=== PATIENT | female | born 1995 | race Two or more races ===

== ENCOUNTER 2024-12-10 15:50 | Inpatient (IN) | payer MEDICAID, SELFPAY ==
[2024-12-10] VITALS (82 sets, daily range): BP systolic 112–160; BP diastolic 72–101; PULSE 68–101; RESP 18–98; TEMP 36.7–36.9; O2SAT 85–100; BMI 35.5
--- NOTE | 2024-12-10 16:05 | XR_ITS ---
Examination: Biophysical profile, ultrasound Date and time of exam: December 10, 2024, 1617 hours INDICATIONS: Labor evaluation, nonreactive NST in the doctor's office today Technique: Multiple transabdominal sonographic images of the pelvis abdomen obtained. Attention is directed to the breathing movement, gross body movement, amniotic fluid volume and tone. Findings: Amniotic fluid index 5.6 cm Total biophysical profile is 8 of 8. breathing movement is 2. Gross body movement is 2. tone is 2. Qualitative amniotic fluid volume is 2 Impression: Biophysical profile is 8 of 8.
--- NOTE | 2024-12-10 16:05 | XR_ITS ---
Examination: age images TECHNIQUE: Limited transabdominal sonographic images pelvis Date and time: December 10, 2024, 1628 hours INDICATIONS: Liver evaluation, nonreactive NST in doctor's office today, and no presentation weight FINDINGS: Viable intrauterine gestation cephalic presentation spine maternal right. Estimated gestational age 38 weeks 2 days. Estimated weight 3422.4 g. IMPRESSION: Viable intrauterine gestation cephalic presentation
[2024-12-10 17:51] LABS: Basophils # (Auto) 0.0 Thou/mm3 (0.0-0.2); Basophils % (Auto) 0 % (0-2.5); Eosinophils # (Auto) 0.1 Thou/mm3 (0.0-0.5); Eosinophils % (Auto) 1 % (0-10); Hematocrit 32.7 % (36.0-46.0); Hemoglobin 11.2 g/dL (12.0-16.0); Immature Granulocytes Auto 0.09 Thou/mm3 (0.00-0.00); Lymphocytes # (Auto) 2.0 Thou/mm3 (1.0-4.8); Lymphocytes % (Auto) 17 % (10-50); Mean Corpuscular HGB Conc 34.3 g/dl (31.0-37.0); Mean Corpuscular Hemoglobin 26.0 pg (25.0-35.0); Mean Corpuscular Volume 76 fL (80-100); Monocytes # (Auto) 0.9 Thou/mm3 (0.0-0.8); Monocytes % (Auto) 7 % (0-12); Neutrophils # (Auto) 8.5 Thou/mm3 (1.8-7.7); Neutrophils % (Auto) 74 % (37-80); Nucleated Red Blood Cell # 0.00 Thou/mm3 (0.00-0.00); Nucleated Red Blood Cell % 0 /100 WBC (0); Platelet Count 184 Thou/mm3 (140-440); RDW Standard Deviation 38.0 fL (36.4-46.3); Red Blood Count 4.30 Miln/mm3 (4.00-5.20); White Blood Count 11.5 Thou/mm3 (3.6-11.0)
[2024-12-10 18:13] LABS: Collection Type, Urine Clean Catch
[2024-12-10 18:23] LABS: Amphetamine/Metham Scrn,Ur OB Negative (Negative); Benzoylecgonine Screen, Ur OB Negative (Negative); Opiate Screen,Urine OB Negative (Negative); THC Screen,Urine OB Negative (Negative)
[2024-12-10 18:24] LABS: Fibrinogen 578 mg/dL (175-375); INR 0.9 (0.9-1.3); Partial Thromboplastin Time 24.8 Seconds (22.0-36.0); Prothrombin Time 9.8 Seconds (9.0-12.2)
[2024-12-10 18:24] LABS: Bacteria,Urine Rare; Bilirubin,Urine Negative (Negative); Blood,Urine Negative (Negative); Clarity,Urine Clear (Clear/Hazy); Color,Urine Lt-Yellow (Lt Yel-Yel); Glucose, Urine Negative (Negative); Ketones,Urine Negative (Negative); Leukocyte Esterase,Urine Negative (Negative); Nitrite,Urine Negative (Negative); PH,Urine 6.5 (5.0-7.0); Protein,Urine Trace (Neg - Trace); RBC,Urine 2 /hpf (0-3); Specific Gravity,Urine 1.027 (1.001-1.035); Squamous Epithelial Cell,Urine 3 /hpf (0-5); Urobilinogen,Urine Negative mg/dL (0.0-1.0); WBC,Urine 1 /hpf (0-5)
[2024-12-10 18:25] LABS: Alanine Aminotransferase < 7 U/L (10-49); Albumin, Serum 3.8 gm/dL (3.5-5.0); Albumin/Globulin Ratio 1.3 (1.2-2.2); Alkaline Phosphatase 150 U/L (46-116); Anion Gap 11 (7-16); Aspartate Amino Transferase 24 U/L (0-34); BUN/Creatinine Ratio 17 Ratio (12-20); Bilirubin,Total 0.3 mg/dL (0.3-1.2); Blood Urea Nitrogen 10 mg/dL (9-23); Calcium 8.8 mg/dL (8.3-10.6); Calcium (Corrected) 9.0 mg/dL (8.5-10.1); Carbon Dioxide 19.3 mMol/L (20.0-31.0); Chloride 108 mMol/L (98-107); Creatinine (Component) 0.6 mg/dL (0.6-1.3); Estimated Creatinine Clearance 137.1 mL/min (>60); Globulin 2.9 gm/dL (2.3-3.5); Glucose 71 mg/dL (74-106); LDH (Lactate Dehydrogenase) 338 U/L (120-246); Osmolality,Calculated 272 (275-295); Potassium 4.4 mMol/L (3.4-5.1); Sodium 138 mMol/L (136-145); Total Protein 6.7 gm/dL (5.7-8.2); Uric Acid 5.6 mg/dL (3.1-7.8); eGFR > 60 See Note
[2024-12-10 18:31] LABS: Syphilis Nonreactive (Nonreactive)
--- NOTE | 2024-12-10 20:24 | PD.LDHP ---
Documentation for date of: 12/10/24 OB Labor/Induct. HPI History of Present Illness Chief complaint: Induction of labor for elevated blood pressures : 5 Term pregnancies: 3 pregnancies: 0 Living children: 3 History of Abortions: Spontaneous and Elective: 1 History of sections: No History of : No Date of last menstrual period: 06/26/24 KARRI: 12/15/24 Gestational Age (weeks): 39 Gestational Age (days): 2 Gestational age based on last menstrual period: 23 Indication for induction: nonreassuring APT and other (Elevated blood pressures in the office) History of present illness: Patient is a 29-year-old -0-1-4 all care uncomplicated with Dr. Luis Antonio Dykes. History of gestational diabetes not insulin requiring who presented to the office with decreased movement had a nonreactive NST blood pressures in the office were 140s to 150s over 80s to 90s with 2+ protein. She was sent over for an induction of labor secondary to -induced hypertension. Of note her last baby was almost 10 pounds. She did not have a shoulder dystocia but it looks like she did have some extra bleeding and was given medications. On admission she denies headaches right upper quadrant pain she is a little anxious. She is requesting dinner. All preeclamptic labs are normal. Cervix on presentation is 270-2 vertex. Adequate pelvic output. The plan will be for Cytotec augmentation orally. History of Present Adequate Care: Yes Ultrasounds: normal mid trimester US Obstetrical complications: gestational diabetes (Not on insulin) and other (History of large for gestational age infant with last delivery of a baby that weighed close to 10 pounds. No shoulder dystocia.) Medical complications: none Labs Maternal Blood Type: O Pos Labs: Negative: RPR, Hepatitis B, Rubella Titre, HIV, Chlamydia, Gonorrhea and Group Beta Strep and Unknown: Herpes Type 1, Herpes Type 2 and Covid-19 Past Medical History Surgical History SURGICAL: Negative Section Meds Home Medications and Allergies Home Medications ?Medication ?Instructions ?Recorded ?Confirmed ?Type alcohol swabs (Alcohol Prep Pads) 1 pad topical .COMPLEX 12/10/24 12/10/24 History blood sugar diagnostic (True 12/10/24 12/10/24 History Metrix Glucose Test Strip) lancets 12/10/24 12/10/24 History lancets 33 gauge (TRUEplus Lancets) 12/10/24 12/10/24 History vit no.95-ferrous 1 tab PO DAILY 12/10/24 12/10/24 History fumarate 28 mg-folic acid 800 mcg tablet () Allergies Allergy/AdvReac Type Severity Reaction Status Date / Time cinnamon Allergy Mild Hives Verified 12/10/24 20:37 COCONUT Allergy Severe SOB, Uncoded 12/10/24 20:37 SWELLING, RASH, SWELLING OF THROAT OB Exam Physical Exam Vital signs: Temp Pulse Resp BP Pulse Ox 98.1 F 84 20 133/85 H 97 12/10/24 19:30 12/10/24 20:20 12/10/24 19:30 12/10/24 20:20 12/10/24 20:01 Detailed Labor and Delivery Exam Dilation (cm): 2 Effacement (%): 70 Cervix position: posterior station: -2 Consistency: soft Presentation: Vertex Membranes: intact Baseline heart rate: 150 monitor decelerations: None middle or intermediate school principal variability: Moderate (11-25) Contraction frequency (min): irregular Tachysystole: No Contraction intensity: Mild OB Results Labs 12/10/24 16:43 12/10/24 16:43 Labs: Short CBC 12/10/24 Range/Units 16:43 WBC 11.5 H (3.6-11.0) Thou/mm3 Hgb 11.2 L (12.0-16.0) g/dL Hct 32.7 L (36.0-46.0) % Plt Count 184 (140-440) Thou/mm3 BMP 12/10/24 16:43 Sodium 138 Potassium 4.4 Chloride 108 H Carbon Dioxide 19.3 L BUN 10 Creatinine 0.6 Glucose 71 L Calcium 8.8 Liver Function 12/10/24 Range/Units 16:43 Total Bilirubin 0.3 (0.3-1.2) mg/dL AST 24 (0-34) U/L ALT < 7 L (10-49) U/L Alkaline Phosphatase 150 H (46-116) U/L Albumin 3.8 (3.5-5.0) gm/dL Urine 12/10/24 Range/Units 17:45 Urine Color Lt-Yellow (Lt Yel-Yel) Urine Clarity Clear (Clear/Hazy) Urine pH 6.5 (5.0-7.0) Ur Specific [place] 1.027 (1.001-1.035) Urine Protein Trace (Neg - Trace) Urine Glucose (UA) Negative (Negative) OB Assessment & Plan Assessment and Plan (1) Encounter for induction of labor: Status: Acute Assessment and plan: Patient has elevated blood pressures in the office. Admit for induction of labor secondary to -induced hypertension (2) Preeclampsia: Status: Acute Assessment and plan: Labs are normal treat blood pressure as needed (3) Supervision of high risk in third trimester: Status: Acute Assessment and plan: For induction of labor Additional Plan Induction method: per misoprostol protocol Plan: induction and anticipate NVD (2) Preeclampsia Qualifiers: Trimester: third trimester Qualified Code(s): O14.93 - Unspecified pre-eclampsia, third trimester
[2024-12-11] VITALS (122 sets, daily range): BP systolic 110–200; BP diastolic 67–122; PULSE 60–123; RESP 16–20; TEMP 36.4–37.1; O2SAT 82–100
[2024-12-11] MEDS: RINGERS LACTATED 1000 ML 1,000 ML 100 ML IV ×2 (01:45→07:43)
[2024-12-11] MEDS: fentaNYL CIT INJ 50 mCg/ML AMP 2ML 100 MCG IVP ×2 (05:45→07:56)
--- NOTE | 2024-12-11 08:49 | PD.LDPN ---
Documentation for date of: 12/11/24 OB Labor Progress Note Pelvic Exam Dilation (cm): 3.5 Effacement (%): 80 station: -2 Amniotic membrane status: Ruptured Contractions Monitor mode: Internal Contraction frequency: 2.5-4.5 Contraction pattern: Coupling Contraction intensity: Moderate Status status: Category l Assessment and Plan Comments: Induction of labor
[2024-12-11] MEDS: OXYTOCIN in NS 20 units 20 UNIT/1,000 ML BAG 125 UNIT IV (09:35)
[2024-12-11] MEDS: IBUPROFEN TAB 400 MG TABLET 800 MG PO ×2 (09:46→18:31)
--- NOTE | 2024-12-11 09:48 | PD.LDDS ---
DS: Providers Provider Date of admission: 12/10/24 15:50 Primary care physician: Julian Dykes MD Admitting Provider: [facility]za [facility] ([facility]) Attending Provider on Admission: Laura Mirza MD ([facility]) Attending Provider on DC: Julian Dykes MD Discharging Provider: Julian Dykes MD DS: Diagnosis Problem List Completed Was Problem List Reviewed/Reconciled?: Yes Summary/Hosp Course Brief History: Patient is a 29-year-old -0-1-4 all care uncomplicated with Dr. Luis Antonio Dykes. History of gestational diabetes not insulin requiring who presented to the office with decreased movement had a nonreactive NST blood pressures in the office were 140s to 150s over 80s to 90s with 2+ protein. She was sent over for an induction of labor secondary to -induced hypertension. Of note her last baby was almost 10 pounds. She did not have a shoulder dystocia but it looks like she did have some extra bleeding and was given medications. On admission she denies headaches right upper quadrant pain she is a little anxious. She is requesting dinner. All preeclamptic labs are normal. Cervix on presentation is 270-2 vertex. Adequate pelvic output. The plan will be for Cytotec augmentation orally. Peripartum Data Delivery Method: Normal Vaginal Delivery Episiotomy Description: None Time Spent with Patient Time attestation: Total time spent providing and/or coordinating discharge services: Exam Vital Signs Temp Pulse Resp BP Pulse Ox 98.0 F 103 H 18 171/79 H 98 12/11/24 07:12 12/11/24 09:44 12/11/24 07:12 12/11/24 09:44 12/11/24 08:57 Discharge Plan Plan Patient Disposition: HOME (Self Care) Disposition Comment: stable Patient condition on transfer: Stable Prescriptions/Referrals Prescriptions/Med Rec: New ibuprofen 600 mg tablet 600 mg PO Q6H PRN (Reason: pain) Qty: 30 0RF No Action PNV cmb#95-ferrous fumarate-FA [] 28 mg iron- 800 mcg tablet 1 tab PO DAILY Patient Comments: TAKE 1 TABLET BY MOUTH EVERY DAY FOR 90 DAYS (DME) True Metrix Glucose Test Strip Strip Patient Comments: USE 1 STRIP VIA METER FOUR TIMES A DAY DISPENSE FOR USE IN CHECKING BLOOD SUGAR FOUR TIMES DAILY alcohol swabs [Alcohol Prep Pads] Pads, Medicated 1 pad topical .COMPLEX Patient Comments: Apply 1 pad to skin four times a day as directed when checking blood sugar. Rx Instructions: 1 pad topically With blood sugar checks; (DME) lancets [facility] [place] Patient Comments: Use 1 lancet as directed four times a day as directed to check blood sugar (DME) lancets [TRUEplus Lancets] 33 gauge [facility] [place] Patient Comments: USE 1 LANCET DIRECTED FOUR TIMES A DAY DIRECTED TO CHECK BLOOD SUGAR Referrals: Julian Dykes MD [Primary Care Provider] - Patient/Caregiver Discharge Instructions Discharge Activity: activity as tolerated Other Discharge Activity Instructions:: Follow up office 6 weeks. Other Discharge Diet Instructions: General Diet as tolerated, lots of water with breast-feeding. Education Materials: After a Vaginal , Understanding Preeclampsia, After Delivery [place] Concerns, Breast Care After Print Language: Romansh Activity Restrictions/Additional Instructions: Pelvic rest x 6 weeks. No intercourse, tampons, douching, bathtubs, swimming pools x 6 weeks. follow up in 6 weeks Stand Alone Forms: Donna Award Info., Patient Portal Info Letter Discharge Order Discharge Orders: Discharge (Routine); Ordered 12/12/24 Ordered By: Laura Mirza ([facility]) Planned Discharge Date 12/12/24
[2024-12-11] MEDS: BENZO/LANO/ALOE (Dermoplast) 60 GM CAN 1 SPRAY TOP (09:49)
--- NOTE | 2024-12-11 09:49 | PD.LDDELS ---
Data ([facility]) Data Hx Section: No : 6 Term: 3 : 0 Livin Abortions: Spontaneous & Theraputic: 1 Delivery Data ([facility]) Labor Data Initiation of labor: Induction Induction/Augmentation Agent: Cytotec-PO ROM date: 12/11/24 ROM time: 06:45 Amniotic membrane rupture type: Artificial Amniotic fluid description: Clear Delivery Data EDC: 12/15/24 EDC calculated by:: LMP/early US confirmation Onset of labor date: 12/11/24 Onset of labor time: 07:30 Complete dilation date: 12/11/24 Complete dilation time: 09:25 [place] delivery date: 12/11/24 delivery time: 09:27 Gestational age (weeks): 39 Gestational age (days): 3 Placenta delivery date: 12/11/24 Placenta delivery time: 09:37 Stage 1 total time: Labor - Stage 1 Duration 1 hours and 55 minutes Delivered by: gilberto Delivery nurse: grover Britton nurse: Agus Channel Opener Outsoles at delivery: No Support person(s) at delivery: N/A Delivery Method Delivery method: Normal Vaginal Delivery Presentation: Vertex position: OA Anesthesia Type Anesthesia Type: Epidural Placenta Placenta delivery description: Spontaneous Cord blood sent to lab: Yes cord blood collection: Cord Blood Type Episiotomy Episiotomy description: None Lacerations #1: Perineal: 2nd degree Perineal repair Sutures used for repair: 3.0 Chromic EBL Estimated blood loss (ml): 150 Umbilical Cord cord description: 3 Vessels Complications Complications: None [place] Data ([facility]ward) Data order: 1 's gender: Male weight (gms): 7 lb 14.986 oz Weight (pounds): 7 lbs and 15.0 ozs 1 minute: 8 5 minutes: 9
[2024-12-11 15:30] LABS: Basophils # (Auto) 0.0 Thou/mm3 (0.0-0.2); Basophils % (Auto) 0 % (0-2.5); Eosinophils # (Auto) 0.0 Thou/mm3 (0.0-0.5); Eosinophils % (Auto) 0 % (0-10); Hematocrit 27.5 % (36.0-46.0); Hemoglobin 9.2 g/dL (12.0-16.0); Immature Granulocytes Auto 0.11 Thou/mm3 (0.00-0.00); Lymphocytes # (Auto) 1.7 Thou/mm3 (1.0-4.8); Lymphocytes % (Auto) 10 % (10-50); Mean Corpuscular HGB Conc 33.5 g/dl (31.0-37.0); Mean Corpuscular Hemoglobin 26.3 pg (25.0-35.0); Mean Corpuscular Volume 79 fL (80-100); Monocytes # (Auto) 1.0 Thou/mm3 (0.0-0.8); Monocytes % (Auto) 6 % (0-12); Neutrophils # (Auto) 14.6 Thou/mm3 (1.8-7.7); Neutrophils % (Auto) 84 % (37-80); Nucleated Red Blood Cell # 0.00 Thou/mm3 (0.00-0.00); Nucleated Red Blood Cell % 0 /100 WBC (0); Platelet Count 157 Thou/mm3 (140-440); RDW Standard Deviation 39.3 fL (36.4-46.3); Red Blood Count 3.50 Miln/mm3 (4.00-5.20); White Blood Count 17.5 Thou/mm3 (3.6-11.0)
[2024-12-11] MEDS: HYDROcodone/APAP 5/325 TABLET 1 TAB PO (20:10)
[2024-12-12 00:15] VITALS: BP 106/63; PULSE 80; RESP 16; TEMP 36.7; O2SAT 97
[2024-12-12 04:20] VITALS: BP 126/86; PULSE 85; RESP 17; TEMP 36.5; O2SAT 97
[2024-12-12 08:20] VITALS: BP 105/69; PULSE 81; RESP 16; TEMP 36.9; O2SAT 97
--- NOTE | 2024-12-12 10:37 | PD.LDPPPRG ---
Subjective Subjective Interval history: Patient is a 29-year-old multiparous patient. She is day #1 status post uncomplicated vaginal delivery she is doing well. She wants to be discharged home. Exam Vital Signs Temp Pulse Resp BP Pulse Ox O2 Del Method 98.4 F 81 16 105/69 97 Room Air 12/12/24 08:20 12/12/24 08:20 12/12/24 08:20 12/12/24 08:20 12/12/24 08:20 12/12/24 08:20 Narrative Exam Patient is alert and oriented x 3. She is in no apparent distress. Fundus is firm. Extremities show no significant edema. Objective Labs 12/11/24 14:58 12/10/24 16:43 Labs: Laboratory Results - last 24 hr 12/11/24 14:58 WBC 17.5 H D RBC 3.50 L Hgb 9.2 L D Hct 27.5 L MCV 79 L MCH 26.3 MCHC 33.5 RDW Std Deviation 39.3 Plt Count 157 Neut % (Auto) 84 H Lymph % (Auto) 10 [place] % (Auto) 6 Eos % (Auto) 0 Baso % (Auto) 0 Neut # (Auto) 14.6 H Lymph # (Auto) 1.7 [place] # (Auto) 1.0 H Eos # (Auto) 0.0 Baso # (Auto) 0.0 Immature Gran # (Auto) 0.11 H Absolute Nucleated RBC 0.00 Immature Gran % 1 H Nucleated RBC % 0 Assessment & Plan Problem List (1) Preeclampsia: Status: Acute Assessment and plan: Patient is doing well. Her blood pressures have stabilized without any medication. She will be discharged home without blood pressure medication. Patient was given signs and symptoms of preeclampsia. She was to call told to call with headaches changes in vision or right upper quadrant pain. She is to follow-up with Dr Dykes in 6 weeks sooner if she has signs of preeclampsia. (2) Term delivered: Status: Acute Assessment and plan: Discharge instructions given. Patient will be discharged home day #1. She understands that she needs to call with heavy bleeding fevers or depression. She needs to keep an eye on her blood pressure in case she develops preeclampsia. Discharge instructions included pelvic rest for 6 weeks, no intercourse, tampons, douching, swimming pools, or bathtubs x 6 weeks. Time Spent With Patient Time: Total time spent is greater than 50% in coordination of care (as documented) at patient's floor/unit and/or counseling patient: Time with patient: less than 15 minutes
--- NOTE | 2024-12-12 10:42 | PD.LDDS ---
DS: Providers Provider Date of admission: 12/10/24 15:50 Primary care physician: Julian Dykes MD Admitting Provider: Laura Mirza MD ([facility]) Attending Provider on Admission: Laura Mirza MD ([facility]) Consults: 12/11/24 11:00 Referral Routine Comment: Attending Provider on DC: Laura Mirza MD ([facility]) Discharging Provider: Laura Mirza MD ([facility]) Anticipated date of discharge: 12/12/24 DS: Diagnosis Discharge Diagnosis (1) Term delivered: Status: Acute (2) Preeclampsia: Status: Acute Problem List Completed Was Problem List Reviewed/Reconciled?: Yes Summary/Hosp Course Brief History: Patient is a 29-year-old -0-1-4 all care uncomplicated with Dr. Luis Antonio Dykes. History of gestational diabetes not insulin requiring who presented to the office with decreased movement had a nonreactive NST blood pressures in the office were 140s to 150s over 80s to 90s with 2+ protein. She was sent over for an induction of labor secondary to -induced hypertension. Of note her last baby was almost 10 pounds. She did not have a shoulder dystocia but it looks like she did have some extra bleeding and was given medications. On admission she denies headaches right upper quadrant pain she is a little anxious. She is requesting dinner. All preeclamptic labs are normal. Cervix on presentation is 2/70/-2 vertex. Adequate pelvic output. The plan will be for Cytotec augmentation orally. The patient underwent an uncomplicated vaginal delivery the morning of 12/11/2024. She had a very small first-degree perineal laceration repaired by Dr Dykes. Her predelivery hemoglobin was 11.2. Postdelivery hemoglobin was 9.2. On day #2, patient was ambulating, voiding, her lochia was mild. She was tolerating a general diet her vital signs were stable. She was discharged home day #1 in stable condition. Her blood pressures remained stable with no antihypertensives given. Peripartum Data Delivery Method: Normal Vaginal Delivery Episiotomy Description: None Laceration Description: see Delivery Summary complications: none Status at Discharge Cognitive/behavioral status at discharge: Patient is alert and oriented x 3 in no apparent distress Functional status at discharge: independent ambulation Overall status at discharge: patient is progressing back to baseline Time Spent with Patient Time attestation: Total time spent providing and/or coordinating discharge services: Time spent: Less than 30 minutes Specific discharge activities: Pelvic rest x 6 weeks, keep an eye on blood pressures. Follow-up with Dr Dykes in 6 weeks call sooner if blood pressures are elevated for further instructions. Exam Vital Signs Temp Pulse Resp BP Pulse Ox O2 Del Method 98.4 F 81 16 105/69 97 Room Air 12/12/24 08:20 12/12/24 08:20 12/12/24 08:20 12/12/24 08:20 12/12/24 08:20 12/12/24 08:20 Narrative Exam Fundus is firm nontender extremities show no significant edema or erythema fundus is at her umbilicus. Discharge Plan Plan Patient Disposition: HOME (Self Care) Disposition Comment: stable Patient condition on transfer: Stable Prescriptions/Referrals Prescriptions/Med Rec: New ibuprofen 600 mg tablet 600 mg PO Q6H PRN (Reason: pain) Qty: 30 0RF No Action PNV cmb#95-ferrous fumarate-FA [] 28 mg iron- 800 mcg tablet 1 tab PO DAILY Patient Comments: TAKE 1 TABLET BY MOUTH EVERY DAY FOR 90 DAYS (DME) True Metrix Glucose Test Strip Strip Patient Comments: USE 1 STRIP VIA METER FOUR TIMES A DAY DISPENSE FOR USE IN CHECKING BLOOD SUGAR FOUR TIMES DAILY alcohol swabs [Alcohol Prep Pads] Pads, Medicated 1 pad topical .COMPLEX Patient Comments: Apply 1 pad to skin four times a day as directed when checking blood sugar. Rx Instructions: 1 pad topically With blood sugar checks; (DME) lancets [facility] [place] Patient Comments: Use 1 lancet as directed four times a day as directed to check blood sugar (DME) lancets [TRUEplus Lancets] 33 gauge [facility] [place] Patient Comments: USE 1 LANCET DIRECTED FOUR TIMES A DAY DIRECTED TO CHECK BLOOD SUGAR Referrals: Julian Dykes MD [Primary Care Provider] - Patient/Caregiver Discharge Instructions Discharge Activity: activity as tolerated Other Discharge Activity Instructions:: Follow up office 6 weeks. Other Discharge Diet Instructions: General Diet as tolerated, lots of water with breast-feeding. Education Materials: After a Vaginal , Understanding Preeclampsia, After Delivery [place] Concerns Print Language: [place] Activity Restrictions/Additional Instructions: Pelvic rest x 6 weeks. No intercourse, tampons, douching, bathtubs, swimming pools x 6 weeks. Stand Alone Forms: Donna Award Info., Patient Portal Info Letter Discharge Order Discharge Orders: Discharge (Routine); Ordered 12/12/24 Ordered By: Laura Mirza ([facility]) Planned Discharge Date 12/12/24 (2) Preeclampsia Qualifiers: Trimester: third trimester Qualified Code(s): O14.93 - Unspecified pre-eclampsia, third trimester
[2024-12-12 11:10] VITALS: BP 132/79; PULSE 92; RESP 14; TEMP 36.7; O2SAT 97
--- NOTE | 2024-12-12 13:25 | PC.CC ---
Renetta Taylor is a 29-year-old female admitted for labor and delivery care. [facility] made contact with Pt at bedside to complete ob assessment and discuss discharge disposition. Role and reason for the contact was explained to Pt. Demographic information was verified. Pt is independent with all ADLs, no source of DME. PCP is [facility]. At time of discharge patient will return home, family will provide transportation. Mother plans on combo feeing, has car seat, and all supplies for baby. Mother denies any use of substance, no DV, no CPS, no MH. Mother reports support system provided by extended family. Discharge Plan: Home PCP: [facility]ARD
== END 2024-12-12 18:50 | disposition home or self-care (01) | DRG 560 ==
LOC: S4SX 12-11 11:46 → S4NX 12-11 13:19
PROVIDERS: Admitting Provider Obstetrics & Gynecology; PCP Specialist; Visit Provider Obstetrics & Gynecology
DX: O14.94 Unspecified pre-eclampsia, complicating childbirth (principal); O72.1 Other immediate postpartum hemorrhage; O76 Abnormality in fetal heart rate and rhythm complicating labor and delivery; Z37.0 Single live birth; Z3A.39 39 weeks gestation of pregnancy; O24.429 Gestational diabetes mellitus in childbirth, unspecified control; O70.1 Second degree perineal laceration during delivery
CPT/HCPCS: 36415; 59409; 76815; 76819; 80053; 80307; 81001; 83615; 84550; 85025; 85384; 85610; 85730; 86780; 86850; 86900; 86901; 94762; J2590; J2795; J3010; J7120; A9270